=== PATIENT | male | born 1935 | race Caucasian/White ===

== ENCOUNTER 2023-02-15 07:11 | Day surgery (SDC) | payer OTHER ==
[2023-01-28 11:07] VITALS: BMI 27.9
[2023-02-15] MEDS ORDERED: ceFAZolin SODIUM 1 GM VIAL ONE (09:14)
[2023-02-15] MEDS ORDERED: TETRACAINE 0.5% OPHTH SOLN 2 ML BOTTLE ONE (09:14)
[2023-02-15] MEDS ORDERED: POVIDONE-IODINE 5% OPHTHALMIC PREP 30 ML SOLUTION ONE (09:14)
[2023-02-15] MEDS ORDERED: ERYTHROMYCIN 0.5% OPHTHALMIC OINTMENT 3.5 GM TUBE ONE (09:14)
[2023-02-15] MEDS ORDERED: MIDAZOLAM HCL 2 MG/2 ML SINGLE DOSE VIAL ONE (09:38)
[2023-02-15] MEDS ORDERED: ONDANSETRON 4 MG/2 ML VIAL ONE (09:46)
[2023-02-15] MEDS ORDERED: DEXAMETHASONE SOD PHOSPHATE 4 MG/1 ML VIAL ONE (09:46)
[2023-02-15] MEDS ORDERED: PROPOFOL 20 ML ONE ×2 (09:50→10:42)
[2023-02-15] MEDS ORDERED: ACETAMINOPHEN 1000 MG/100 ML BAG IVPB ONE (11:09)
[2023-02-15] MEDS ORDERED: ONDANSETRON 4 MG/2 ML VIAL IVPUSH PRN (11:09)
[2023-02-15] MEDS ORDERED: LACTATED RINGERS SOLUTION 1,000 ML IV SCH (11:15)
[2023-02-15] MEDS ORDERED: ACETAMINOPHEN INJECTION 100 ML IVPB ONE (11:28)
[2023-02-15] MEDS ORDERED: FENTANYL CITRATE/PF 50 MCG/ML VIAL ONE ×2 (11:31→11:47)
[2023-02-15] MEDS ORDERED: oxyCODONE HCL 5 MG TABLET PO PRN (12:04)
[2023-02-15 12:48] VITALS: RESP 16; TEMP 97.9
[2023-02-15 13:48] VITALS: BP 115/50; PULSE 51
== END 2023-02-15 13:50 | disposition home or self-care (01) ==
LOC: FASU 07:11
PROVIDERS: ATTEND Ophthalmology
PROC: 08SR0ZZ Reposition Left Lower Eyelid, Open Approach (ICD-10-PCS; principal; 2023-02-15 10:00)
DX: H02.035 Senile entropion of left lower eyelid (principal)
CPT/HCPCS: 82962; 94760